=== PATIENT | female | born 1950 | race Caucasian/White ===

== ENCOUNTER 2024-11-11 06:55 | Day surgery (SDC) | payer MEDICARE, SELFPAY ==
[2024-11-10 12:12] VITALS: BMI 48.8
[2024-11-11] VITALS (10 sets, daily range): BP systolic 141–207; BP diastolic 70–151; PULSE 68–77; RESP 18–23; TEMP 36.7–36.8; O2SAT 95–100; BMI 43.2
[2024-11-11] MEDS: DiphenhydrAMINE INJ 50 MG/ML VIAL 25 MG IV (08:11)
[2024-11-11] MEDS: fentaNYL CIT INJ 50 mCg/ML AMP 2ML (ASD USE ONLY) IV (08:11)
[2024-11-11] MEDS: MIDAZOLAM INJ 1 MG/ML VIAL 2 ML (ASD USE ONLY) 2 MG IV (08:11)
[2024-11-11] MEDS: hydrALAZINE INJ 20 MG/ML VIAL 10 MG IV (08:17)
== END 2024-11-11 09:55 | disposition home or self-care (01) ==
PROVIDERS: PCP Student in an Organized Health Care Education/Training Program; Referring Provider Surgery; Visit Provider Surgery
PROC: 0DBE8ZX Excision of Large Intestine, Via Natural or Artificial Opening Endoscopic, Diagnostic (ICD-10-PCS; CPT 45380; principal; 2024-11-11 08:00)
DX: K64.1 Second degree hemorrhoids (principal); K64.4 Residual hemorrhoidal skin tags; K57.31 Diverticulosis of large intestine without perforation or abscess with bleeding
CPT/HCPCS: 45378; J0360; J1200; J2250; J3010